=== PATIENT | male | born 1970 | race Caucasian/White ===

== ENCOUNTER 2020-08-25 16:48 | Emergency (ER) | payer MEDICAID, SELFPAY ==
[2020-08-25 16:49] VITALS: BP 140/107; PULSE 90; RESP 17; TEMP 36.1; O2SAT 94; BMI 50.3
[2020-08-25 16:52] VITALS: BP 140/107; PULSE 89; RESP 17; O2SAT 95
--- NOTE | 2020-08-25 17:19 | US_ITS ---
HISTORY: RLE SWELLING AND REDNESS COMPARISON: None. TECHNIQUE: Sagittal and axial conroy scale and color Doppler images, including compression images, obtained of the right common femoral, femoral, popliteal, and posterior tibial veins. Doppler wave forms from the segments also recorded. Doppler and color Doppler interrogation performed of the saphenofemoral junction. # of images incl. paperwork: 18 FINDINGS: Color Doppler and conroy scale imaging of the right lower extremity deep venous structures demonstrate no evidence of intraluminal thrombus. Normal compressibility of all deep venous segments. Normal phasic Doppler wave forms, which demonstrate normal augmentation response and and normal directional flow. Contralateral left common femoral vein is patent. Calf veins: Venous flow demonstrated the imaged segments. US/Venous Duplex Imag/Limited/Uni IMPRESSION: 1. Negative for right lower extremity deep venous thrombosis. at 1821 Reported and signed by: Ar De La Vega MD Electronically Signed: Ar De La Vega MD at 18:20 EDT Tel , Service support ,
--- NOTE | 2020-08-25 17:21 | RAD_ITS ---
STUDY: X-RAY - RIGHT TIBIA AND FIBULA REASON FOR EXAM: Male, 50 years old. FALL -- IN WAITING ROOM TECHNIQUE: 2 view(s) of the tibia and fibula were obtained. COMPARISON: None. FINDINGS: Normal visualized tibia. Normal visualized fibula. There is no demonstrated acute fracture. The soft tissue structures are unremarkable. RAD/Tibia & Fibula 2 Views IMPRESSION: Normal x-ray examination of the tibia and fibula. Electronically Signed: Moe Jalloh MD at 17:53 EDT , Service support ,
--- NOTE | 2020-08-25 18:08 | ED.DCSUM_ITS ---
- ER Visit Summary Date of Service: 08/25/20 Chief Complaint: [Right leg pain] History of Present Illness: The patient is a 50 M [presents to the emergency department from urgent care. Patient states that he had a fall 5 days ago where his left ankle rolled and he fell and injured his right leg against some bricks. Patient's had discomfort since that time however he is able to ambulate. He was seen at urgent care today because he had erythema and concern for infection was referred to the emergency department. Patient states that the skin has become warm since yesterday. There was also concern about possibility of DVT. Patient has history of diabetes and history of asthma.] Physical Examination: [HEENT-PERRLA, EOMI. Cranial nerves II through XII grossly intact. TMs clear. Mucous membranes moist. No adenopathy. Cardiovascular-regular rate and rhythm without murmur or ectopy Lungs-clear to auscultation, chest wall stable without crepitus or subcu emphysema Abdomen-normoactive bowel sounds, soft, nontender, no rebound or rigidity, no peritoneal signs. Extremities-intact ?4, normal range of motion, normal pulses. Right leg-patient does have erythema and cellulitis from just below the knee down to the ankle. Patient has ecchymosis and bruising anteriorly about the ankle. He is got diffuse tenderness over the anterior tibia. Neurovascular intact distally.] Test Results: [This duplex of the right leg obtained was negative for DVT. X- rays of the right tib-fib obtained 2 views interpreted by myself as no acute fractures and radiology in agreement.] Emergency Department Course and Treatment: [Patient was given ibuprofen 600 mg p.o. Patient was given Bactrim and Keflex.] Treatment Plan: [We will be treated with Keflex and Bactrim and advised to follow-up with his primary care physician for wound check in 3 to 5 days. Patient advised to return if worsening pain, fever, increased redness, or condition should worsen anyway.] Disposition: [Discharged home in stable condition] Impression: [Contusion right leg Cellulitis right leg] This note was generated with [email or web address] software. It may contain incorrect words, spelling, and punctuation that were not noted in review of the chart prior to signing ED Disposition - Plan for ED Patient: Referrals: Alexandro Madrigal MD [Primary Care Provider] -
--- NOTE | 2020-08-25 18:10 | ED.DEP ---
ED Disposition - Plan for ED Patient: Instructions: ED Contusion, Lower Extremity, ED Cellulitis Prescriptions: Smz/Tmp Ds [Bactrim Ds] 1 tablet PO BID #20 tablet Transmission Status: Pending to [facility] Cephalexin [Keflex] 500 mg PO Q6 #40 capsule Transmission Status: Pending to [facility] Ibuprofen [Motrin] 800 mg PO TID PRN PRN #20 tablet PRN Reason: Pain 1-10 Or Fever Transmission Status: Pending to [facility] Referrals: Alexandro Madrigal MD [Primary Care Provider] -
[2020-08-25] MEDS: Ibuprofen 600 MG Tablet PO (18:22)
[2020-08-25] MEDS: Cephalexin 250 MG Capsule 500 MG PO (18:22)
[2020-08-25] MEDS: Smz/Tmp Ds Tablet 1 TABLET PO (18:23)
[2020-08-25 18:24] VITALS: BP 134/88; PULSE 79; RESP 16; O2SAT 96
== END 2020-08-25 18:31 | disposition home or self-care (01) ==
PROVIDERS: Emergency Provider Emergency Medicine; PCP Family Medicine
DX: S80.11XA Contusion of right lower leg, initial encounter (principal); L03.115 Cellulitis of right lower limb; W01.10XA Fall on same level from slipping, tripping and stumbling with subsequent striking against unspecified object, initial encounter; Y93.9 Activity, unspecified; Y92.9 Unspecified place or not applicable; Y99.9 Unspecified external cause status; E11.9 Type 2 diabetes mellitus without complications; J45.909 Unspecified asthma, uncomplicated
CPT/HCPCS: 73590; 93971; 99283

== ENCOUNTER 2021-07-21 14:03 | Outpatient (CLI) | payer MEDICAID, SELFPAY ==
[2021-07-21 14:29] LABS: D-Dimer Quantitative (DVT/PE) 0.43 FEU/ug/m (0.27-0.49)
== END 2021-07-21 23:59 | disposition home or self-care (01) ==
LOC: LABSPEC 14:06
PROVIDERS: PCP Family Medicine; Visit Provider Physician Assistant
DX: R06.02 Shortness of breath (principal)
CPT/HCPCS: 85379